=== PATIENT | male | born 1990 | race African-American/Black ===

== ENCOUNTER 2019-09-07 20:47 | Emergency (ER) | payer SELFPAY ==
[~2019-09-07] VITALS: Ht 177.8 cm; Wt 87.0 kg
[2019-09-07 20:51] VITALS: BP 155/100
== END 2019-09-07 22:13 | disposition left against medical advice (07) ==
LOC: ER 20:47
DX: R51 Headache (principal); Z53.21 Procedure and treatment not carried out due to patient leaving prior to being seen by health care provider
CPT/HCPCS: 99283